=== PATIENT | female | born 1960 | race Caucasian/White ===

== ENCOUNTER 2017-02-23 13:22 | Emergency (ER) | payer MEDICARE, OTHER ==
[~2017-02-23] VITALS: Ht 162.6 cm; Wt 100.0 kg
[2017-02-23] MEDS ORDERED: LEVO10VL IM (13:43)
[2017-02-23] MEDS ORDERED: VITA200016 PO (13:43)
[2017-02-23] MEDS ORDERED: IBUP1TAB7 PO (13:43)
[2017-02-23] MEDS ORDERED: [UNRECOGNIZED DRUG - CODE] PO (13:43)
[2017-02-23] MEDS ORDERED: METH2.5TA PO (13:43)
[2017-02-23] MEDS ORDERED: GABA-283 PO (13:43)
[2017-02-23] MEDS ORDERED: ASPI81TA85 PO (13:43)
[2017-02-23] MEDS ORDERED: HYDR12.55 PO (13:43)
[2017-02-23] MEDS ORDERED: FISH1000 PO (13:43)
[2017-02-23] MEDS ORDERED: LISI-538 PO (13:43)
[2017-02-23] MEDS ORDERED: ESTR1TAB PO (13:43)
[2017-02-23] MEDS ORDERED: VENL75TA2 PO (13:43)
[2017-02-23] MEDS ORDERED: MAGN400C2 PO (13:43)
[2017-02-23] MEDS ORDERED: ATOR1TAB21 PO (13:43)
[2017-02-23] MEDS ORDERED: BIOT7500 PO (13:43)
[2017-02-23] MEDS ORDERED: OMEP40CA2 PO (13:43)
[2017-02-23] MEDS ORDERED: FOLI5INJ2 SC (13:43)
[2017-02-23] MEDS ORDERED: NS 1,000 ML IV ONE (13:45)
[2017-02-23 14:13] LABS: BASO % 0.4 % (0.0-1.0); EOS % 0.6 % (0.0-3.0); LARGE UNSTAINED CELL # 0.1 K/mm3 (0.0-0.4); LARGE UNSTAINED CELL % 2.2 % (0.0-4.0); LYMPH # 1.5 K/mm3 (1.5-4.5); LYMPH % 22.2 % (24.0-44.0); MEAN CORPUSCULAR HEMOGLOBIN 31.7 pg (27.0-33.0); MEAN CORPUSCULAR HGB CONC 34.5 g/dl (32.0-36.5); MEAN CORPUSCULAR VOLUME 91.9 fl (80.0-96.0); MONO # 0.3 K/mm3 (0.0-0.8); MONO % 4.1 % (0.0-5.0); NEUTROPHILS # 4.4 K/mm3 (1.8-7.7); NEUTROPHILS % 70.6 % (36.0-66.0); PLATELET COUNT, AUTOMATED 328 k/mm3 (150-450); RED CELL DISTRIBUTION WIDTH 13.3 % (11.5-14.5); WHITE BLOOD COUNT 6.2 K/mm3 (4.0-10.0)
[2017-02-23 14:38] LABS: ALBUMIN 3.1 GM/DL (3.2-5.2); ALBUMIN/GLOBULIN RATIO 0.79 (1.00-1.93); ALKALINE PHOSPHATASE 74 U/L (45-117); ALT/SGPT 31 U/L (12-78); ANION GAP 9 MEQ/L (8-16); AST/SGOT 23 U/L (15-37); BILIRUBIN,DIRECT 0.1 MG/DL (0.0-0.2); BILIRUBIN,TOTAL 0.4 MG/DL (0.2-1.0); BLOOD UREA NITROGEN 6 MG/DL (7-18); CALCIUM LEVEL 8.5 MG/DL (8.5-10.1); CARBON DIOXIDE LEVEL 27 MEQ/L (21-32); CHLORIDE LEVEL 106 MEQ/L (98-107); CREATININE FOR GFR 0.77 MG/DL (0.55-1.02); GLOMERULAR FILTRATION RATE > 60.0 (>51); GLUCOSE, FASTING 99 MG/DL (70-105); POTASSIUM SERUM 3.1 MEQ/L (3.5-5.1); SODIUM LEVEL 142 MEQ/L (136-145)
[2017-02-23] MEDS ORDERED: POTASSIUM CHLORIDE 10 MEQ SR TABLET PO ONE (15:30)
[2017-02-23] MEDS ORDERED: PROMETHAZINE INJ 25 MG/ML VIAL (J2550) IV ONE (15:45)
--- NOTE | 2017-02-23 15:45 | REP ---
ABDOMEN, FLAT AND UPRIGHT, PA CHEST, THREE VIEWS: HISTORY: Abdominal pain. A small amount of air is present in small and large intestine. There are no air fluid levels or dilated loops of intestine. There is no pneumoperitoneum. The lungs are clear. IMPRESSION: Nonspecific bowel gas pattern. Signed by Tha Ramirez MD 02/23/2017 03:53 P
[2017-02-23] MEDS ORDERED: ACETAMINOPHEN 325 MG TAB As Ordered ONE (15:47)
[2017-02-23] MEDS ORDERED: ACETAMINOPHEN 325 MG TAB PO ONE (16:00)
[2017-02-23 17:08] VITALS: BP 148/77
--- NOTE | 2017-02-24 20:12 | ECGEPIP ---
Stationary ECG Study [facility] - ED Test Date: 2017-02-23 Pat Name: LYNN HAHN Department: Room: - Gender: F [employer] Systems Engineer: francois : [id number] Requested By: Floridalma Muñoz Order Number: [id number] Reading MD: Edin Mckeon Measurements Intervals [place] Rate: 68 P: 37 VA: 165 QRS: -3 QRSD: 90 T: 36 QT: 418 QTc: 447 Interpretive Statements SINUS RHYTHM LEFTWARD AXIS NONSPECIFIC ST T WAVE CHANGES DELAYED R WAVE PROGRESSION NO OLD ECG FOR COMPARISON Electronically Signed On 02-24-2017 20:12:23 EDT by Edin Mckeon
== END 2017-02-23 17:14 | disposition home or self-care (01) ==
LOC: M ED 13:22 → EDBD 13:22 → M ED 17:14
DX: E87.6 Hypokalemia (principal); R11.10 Vomiting, unspecified; I10 Essential (primary) hypertension; M79.7 Fibromyalgia; E07.9 Disorder of thyroid, unspecified; Z87.891 Personal history of nicotine dependence; Z88.8 Allergy status to other drugs, medicaments and biological substances; Z88.2 Allergy status to sulfonamides; Z91.02 Food additives allergy status; Z91.048 Other nonmedicinal substance allergy status; Z79.899 Other long term (current) drug therapy; Z79.82 Long term (current) use of aspirin